=== PATIENT | female | born 1960 | race African-American/Black ===

== ENCOUNTER → 2022-08-12 | Outpatient (CLI) | payer OTHER, SELFPAY ==
--- NOTE | 2022-08-12 15:26 | NEURO ---
NCS and/or EMG Patient Report Ordering Doctor: Cleve Curry DATE OF SERVICE: 08/12/22 Indication: Three month history of right shoulder pain shooting down to the fingers. Right hand numbness and tingling at night. Evaluate for cervical radiculopathy and/or entrapment neuropathy. Findings: Nerve conduction studies were performed in the right upper extremity. The right median motor study recording the abductor pollicis brevis showed a normal amplitude and markedly prolonged distal latency. The right ulnar motor study recording the abductor digiti minimi showed a normal amplitude, normal distal latency and normal conduction velocity. No conduction block or focal slowing was present across the elbow. The right median sensory response recording digit two showed a normal amplitude, markedly prolonged latency and markedly slowed conduction velocity. The right ulnar sensory response recording digit five showed a normal amplitude, latency and conduction velocity. The right radial sensory response recording over the extensor snuff box showed a normal amplitude, latency and conduction velocity. Needle EMG of the right upper extremity muscles was performed. No denervation was seen in any muscle. All motor unit morphology, activation and recruitment patterns were normal. Impression: This is an abnormal study. 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 The pathophysiology is demyelinating with no evidence of secondary axonal loss. These findings are compatible with the clinical diagnosis of carpal tunnel syndrome. There was no evidence of a superimposed radiculopathy in the right upper extremity. However, the electrodiagnosis of radiculopathy is made on the basis of excluding peripheral nerve lesions on nerve conduction studies and the needle EMG demonstrating denervation and/or reinnervation in the distribution of one or more nerve roots (i.e., acute and/or chronic axonal loss). Thus, electrodiagnostic studies are insensitive in detecting radiculopathy in the absence of axonal loss (e.g., in the setting of compression resulting in intermittent ischemia or mechanical deformation; or demyelination without axonal loss). Thus, clinical correlation is required in the interpretation of this negative electrodiagnostic study for radiculopathy. Santiago Clement D.O. [employer] Codes Neurology Neurology Interp Codes: 61799-15 Musc test done w/n test comp (interp) and 75865-59 Nrv cndj tst 5-6 studies (interp)
== END | disposition home or self-care (01) ==
PROVIDERS: Referring Provider Orthopaedic Surgery; Visit Provider Orthopaedic Surgery
DX: S46.011A Strain of muscle(s) and tendon(s) of the rotator cuff of right shoulder, initial encounter (principal); G56.00 Carpal tunnel syndrome, unspecified upper limb; R20.0 Anesthesia of skin
CPT/HCPCS: 95886; 95909